=== PATIENT | female | born 2000 | race American Indian/Alaskan Native ===

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

== ENCOUNTER 2022-03-24 12:32 | Outpatient (CLI) | payer OTHER ==
[2022-03-24 16:13] LABS: Basophils % (Auto) 0.5 % (0.0-1.8); Eosinophils # (Auto) 0.1 K/mm3 (0.0-0.4); Eosinophils % (Auto) 2.2 % (0.0-4.3); Hematocrit 38.6 % (30.3-42.9); Hemoglobin 13.1 gm/dl (10.1-14.3); Lymphocytes # (Auto) 1.8 K/mm3 (1.2-5.4); Lymphocytes % (Auto) 41.4 % (13.4-35.0); Mean Corpuscular HGB Conc 34 % (30-34); Mean Corpuscular Volume 93 fl (79-97); Monocytes # (Auto) 0.3 K/mm3 (0.0-0.8); Monocytes % (Auto) 5.9 % (0.0-7.3); Platelet Count 303 K/mm3 (140-440); Red Blood Count 4.15 M/mm3 (3.65-5.03); Red Cell Distribution Width 13.4 % (13.2-15.2)
[2022-03-24 16:23] LABS: Alanine Aminotransferase 10 units/L (7-56); Albumin 4.6 g/dL (3.9-5); Blood Urea Nitrogen 14 mg/dL (7-17); Calcium 9.8 mg/dL (8.4-10.2); Chol/HDL Ratio 3.41 %; HDL Cholesterol 53 mg/dL (40-59); Hemolysis Index 8; LDL Cholesterol,Direct 125 mg/dL (50-130)
[2022-03-24 16:34] LABS: BUN/Creatinine Ratio 23
== END 2022-03-24 12:33 | disposition home or self-care (01) ==
LOC: LABHHL 12:32
PROVIDERS: ATTEND Internal Medicine
DX: Z00.00 Encounter for general adult medical examination without abnormal findings (principal); E55.9 Vitamin D deficiency, unspecified; R53.83 Other fatigue
CPT/HCPCS: 36415; 80053; 80061; 82306; 82728; 84443; 85025

== ENCOUNTER 2022-05-08 21:57 | Emergency (ER) | payer OTHER ==
[2022-05-08] MEDS ORDERED: SODIUM CHLORIDE 0.9% 1000 ML 1,000 ML ONE (22:12)
[2022-05-08] MEDS ORDERED: SODIUM CHLORIDE 0.9% 1000 ML 1,000 ML IV ONE (22:13)
--- NOTE | 2022-05-08 22:46 | XRay Report ---
CHEST 2 VIEWS INDICATION / CLINICAL INFORMATION: Altered Mental Status STUDY TIME: COMPARISON: None available. FINDINGS: SUPPORT DEVICES: None. HEART / MEDIASTINUM: No significant abnormality. LUNGS / PLEURA: No significant acute pulmonary or pleural abnormality. No pneumothorax. ADDITIONAL FINDINGS: No significant additional findings. Signer Name: Enmanuel Hopper MD Signed: 05/08/2022 10:42 PM Workstation Name: [id number]
[2022-05-08 22:48] LABS: Basophils % (Auto) 0.3 % (0.0-1.8); Eosinophils # (Auto) 0.1 K/mm3 (0.0-0.4); Hematocrit 34.5 % (30.3-42.9); Hemoglobin 11.8 gm/dl (10.1-14.3); Lymphocytes # (Auto) 2.2 K/mm3 (1.2-5.4); Lymphocytes % (Auto) 31.6 % (13.4-35.0); Mean Corpuscular HGB Conc 34 % (30-34); Mean Corpuscular Volume 93 fl (79-97); Monocytes # (Auto) 0.4 K/mm3 (0.0-0.8); Monocytes % (Auto) 5.7 % (0.0-7.3); Platelet Count 229 K/mm3 (140-440); Red Blood Count 3.72 M/mm3 (3.65-5.03); Red Cell Distribution Width 13.2 % (13.2-15.2)
[2022-05-08 23:28] LABS: Alanine Aminotransferase 7 units/L (7-56); Albumin 3.8 g/dL (3.9-5); Blood Urea Nitrogen 10 mg/dL (7-17); Calcium 8.6 mg/dL (8.4-10.2); Hemolysis Index 15
[2022-05-08 23:37] LABS: BUN/Creatinine Ratio 17
[2022-05-09 01:27] LABS: Color,Urine Straw (Yellow)
[2022-05-09 01:31] LABS: Mucus,Urine FEW /HPF
[2022-05-09 02:06] LABS: Amphetamine Screen,Urine Negative; Benzodiazepines Screen,Urine Negative; Cannabinoid Screen,Urine Negative; Cocaine Screen,Urine Negative; Methadone Screen,Urine Negative; Opiate Screen,Urine Negative
--- NOTE | 2022-05-09 02:57 | Emergency Department Report ---
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 PT TAKEN TO MAIN ED WITH REPORT GIVEN TO PRIMARY RN. BF stated that she has been suffering from depression -: hour(s) (2) Intent: unwilling to say How Overdose Was Discovered: called family/friend Context: Intentional Overdose: other (depression) Associated Symptoms: depression Treatments Prior to Arrival: none - Related Data Allergies Allergy/AdvReac Type Severity Reaction Status Date / Time No Known Allergies Allergy Verified 05/08/22 22:17 ED Review of Systems ROS: Stated complaint: OD Other details as noted in HPI Constitutional: denies: chills, fever Eyes: denies: eye pain, eye discharge, vision change ENT: denies: ear pain, throat pain Respiratory: denies: cough, shortness of breath, wheezing Cardiovascular: denies: chest pain, palpitations Endocrine: no symptoms reported Gastrointestinal: denies: abdominal pain, nausea, diarrhea Genitourinary: denies: urgency, dysuria, discharge Musculoskeletal: denies: back pain, joint swelling, arthralgia Skin: denies: rash, lesions Neurological: denies: headache, weakness, paresthesias Psychiatric: denies: anxiety, depression Hematological/Lymphatic: denies: easy bleeding, easy bruising ED Past Medical Hx - Past Medical History Previous Medical History?: Yes Hx Hypertension: No Hx CVA: No Additional medical history: depression ED Physical Exam - General Limitations: Language Barrier, Altered Mental Status General appearance: alert, in no apparent distress, other (sleepy drowsy ) - Head Head exam: Present: atraumatic, normocephalic - Eye Eye exam: Present: normal appearance - ENT ENT exam: Present: mucous membranes moist - Neck Neck exam: Present: normal inspection - Respiratory Respiratory exam: Present: normal lung sounds bilaterally. Absent: respiratory distress - Cardiovascular Cardiovascular Exam: Present: regular rate, normal rhythm. Absent: systolic murmur, diastolic murmur, rubs, gallop - GI/Abdominal GI/Abdominal exam: Present: soft, normal bowel sounds - Extremities Exam Extremities exam: Present: normal inspection - Back Exam Back exam: Present: normal inspection - Neurological Exam Neurological exam: Present: oriented X3 - Psychiatric Psychiatric exam: Present: normal affect, normal mood - Skin Skin exam: Present: warm, dry, intact, normal color. Absent: rash ED Course Vital Signs 05/08/22 05/08/22 05/08/22 22:02 22:15 22:31 Temperature Pulse Rate 74 77 77 Respiratory 21 18 14 Rate Blood Pressure 102/59 Blood Pressure [Left] O2 Sat by Pulse 96 100 Oximetry 05/08/22 05/08/22 05/08/22 22:45 23:00 23:01 Temperature 98 F Pulse Rate 90 89 Respiratory 17 14 Rate Blood Pressure 107/62 109/60 Blood Pressure [Left] O2 Sat by Pulse Oximetry 05/08/22 05/08/22 05/08/22 23:15 23:31 23:45 Temperature Pulse Rate 99 H 91 H 117 H Respiratory 13 13 15 Rate Blood Pressure 112/68 112/68 118/74 Blood Pressure [Left] O2 Sat by Pulse Oximetry 05/09/22 05/09/22 05/09/22 00:01 00:07 00:15 Temperature Pulse Rate 103 H 114 H 101 H Respiratory 14 15 14 Rate Blood Pressure 118/74 118/74 128/76 Blood Pressure [Left] O2 Sat by Pulse Oximetry 05/09/22 05/09/22 05/09/22 00:31 00:45 01:01 Temperature Pulse Rate 103 H 98 H 100 H Respiratory 13 14 15 Rate Blood Pressure 128/76 112/70 112/70 Blood Pressure [Left] O2 Sat by Pulse Oximetry 05/09/22 05/09/22 05/09/22 01:15 01:31 01:35 Temperature Pulse Rate 78 88 Respiratory 18 14 Rate Blood Pressure 106/79 106/79 Blood Pressure [Left] O2 Sat by Pulse 98 Oximetry 05/09/22 05/09/22 05/09/22 01:45 02:01 02:15 Temperature Pulse Rate 90 92 H 89 Respiratory 13 14 13 Rate Blood Pressure 103/63 103/63 105/57 Blood Pressure [Left] O2 Sat by Pulse Oximetry 09/09/22 09/09/22 09/09/22 02:31 02:45 03:01 Temperature Pulse Rate 90 94 H 91 H Respiratory 12 13 13 Rate Blood Pressure 105/57 108/59 108/59 Blood Pressure [Left] O2 Sat by Pulse Oximetry 05/09/22 05/09/22 05/09/22 03:15 03:31 08:53 Temperature 97.9 F Pulse Rate 86 115 H 57 L Respiratory 14 18 18 Rate Blood Pressure 102/67 102/67 Blood Pressure 127/77 [Left] O2 Sat by Pulse 97 Oximetry 05/09/22 15:00 Temperature Pulse Rate 60 Respiratory 18 Rate Blood Pressure Blood Pressure 130/88 [Left] O2 Sat by Pulse 97 Oximetry ED Medical Decision Making - Lab Data Result diagrams: 05/08/22 22:32 05/08/22 22:32 - EKG Data -: EKG Interpreted by Me EKG shows normal: sinus rhythm Rate: tachycardia - EKG Data Interpretation: no acute changes - Radiology Data Radiology results: report reviewed, image reviewed - Medical Decision Making poison control contacted , fludis given , observed cleared by ED , [address] , will geetha to psych for obs and psych assessment Critical care attestation.: If time is entered above; I have spent that time in minutes in the direct care of this critically ill patient, excluding procedure time. ED Disposition Clinical Impression: Depression, Overdose Disposition: 30 STILL A PATIENT Is pt being admited?: No Does the pt Need Aspirin: No Condition: Stable Additional Instructions: OUTPATIENT MENTAL HEALTH RESOURCES [facility], [facility] Claudine Gutierrez MD: [address] [facility] [address] [place] [address] [place] [address] [facility]: [facility] [address] [place] [address] [place] [address] [phone] [facility]: [facility]: [address] [facility] [address] [place] [address] [place] [address] [facility] [id number] [facility]: Leroy Lam MD: [id number] [facility] [address] [facility] [address] [facility]: [address] [place], [place] [address]ate [place] [address] [phone] [place] CRISIS AND ACCESS LINE: Referrals: ARIE SCHWARTZ MD [Primary Care Provider] - 3-5 Days
--- NOTE | 2022-05-09 06:29 | Event Note ---
Date: 05/09/22 Patient is a 22-year-old female here on 1013 hold for intentional overdose. This morning she appears awake and alert. Denies any complaints at this time. Constitutional: No fever, chills, weight loss Eyes: No changes in vision, photophobia, ocular pain Cardiovascular: No chest pain, palpitations, edema Respiratory: No dyspnea, cough Gastrointestinal: No nausea, vomiting, diarrhea, abdominal pain Genitourinary: No dysuria, hematuria, polyuria Musculoskeletal: No arthralgia, myalgia Integumentary: No rashes, lesions or change in color Neurological: No focal weakness, headache or numbness Psychiatric: As per HPI General: Alert and oriented x3, no acute distress Head: Normocephalic, atraumatic Eyes: PERRLA, EOMI Cardiac: Regular rate, regular rhythm, no murmurs, gallops or rubs Respiratory: Clear to auscultation bilaterally, no wheezes, rales, normal work of breathing Abdomen: Soft, nontender, nondistended, normal bowel sounds Skin: Warm, dry, intact, appropriate for ethnicity, no rashes or lesions Neurological: Cranial nerves II through XII grossly intact Psych: Normal mood and affect
--- NOTE | 2022-05-09 10:19 | Consultation ---
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 PT TAKEN TO MAIN ED WITH REPORT GIVEN TO PRIMARY RN. BF stated that she has been suffering from depression The patient was today. She makes poor eye contact and endorses feeling depressed. She says she has been depressed and "the medication has not been good for me." The patient denies feeling suicidal at the moment, but says she's "just been depressed." She denies having any suicidal thoughts. She denies hallucinations or any illicit drug use. The patient says she lives with her sister and her mom. REVIEW OF SYSTEMS Constitutional: Negative for weight loss ENT: Negative for stridor Respiratory: Negative for cough or hemoptysis All other systems reviewed and are negative MENTAL STATUS EXAMINATION General Appearance and Behavior: Age appropriate, wearing appropriate clothes, cooperative, polite with questioning, fair eye contact Cooperation: cooperative Psychomotor Behavior: Psychomotor normal Mood: depressed Affect and affective range: congruent with stated affect Thought Process: Goal directed Thought Content: Reality oriented Speech: Normal volume, Regular rate and rhythm Suicidal Ideation: Denies Homicidal Ideation: Denies Hallucination: Denies Delusions: None elicited Impulse Control: poor Insight and Judgment: Limited Memory: Intact Attention:attentive Orientation: Alert and oriented Assessment: Major Depressive Disorder Intentional Overdose Treatment Plan 1013 Zoloft 25mg po daily Trazodone 50mg po qhs PSYCHOTHERAPY: Supportive psychotherapy provided MEDICAL: Per primary team DELIRIUM PRECAUTIONS: Please re-orient patient frequently, keep lights on during the day, and minimize benzodiazepines and opiates as these medications could worsen patient's confusion. 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 FOLLOW-UP: Will follow Thanks Case staffed with Dr. Barber Medications and Allergies Allergies Allergy/AdvReac Type Severity Reaction Status Date / Time No Known Allergies Allergy Verified 05/08/22 22:17 Mental Status Exam - Vital signs Last Vital Signs Temp 97.9 F 05/09/22 08:53 Pulse 57 L 05/09/22 08:53 Resp 18 05/09/22 08:53 BP 127/77 05/09/22 08:53 Pulse Ox 97 05/09/22 08:53 Results Result Diagrams: 05/08/22 22:32 05/08/22 22:32 Abnormal lab results 05/08/22 05/08/22 05/08/22 Range/Units 22:11 22:32 22:32 Chloride 108.2 H (98-107) mmol/L Glucose 115 H (65-100) mg/dL POC Glucose 106 H (70-105) mg/dL Lactic Acid (0.7-2.0) mmol/L Ammonia 12.0 L (25-60) umol/L Total Protein 6.1 L (6.3-8.2) g/dL Albumin 3.8 L (3.9-5) g/dL Salicylates (2.8-20.0) mg/dL Acetaminophen (10.0-30.0) ug/mL 05/08/22 05/08/22 05/09/22 Range/Units 22:32 22:32 00:07 Chloride (98-107) mmol/L Glucose (65-100) mg/dL POC Glucose (70-105) mg/dL Lactic Acid 0.60 L (0.7-2.0) mmol/L Ammonia (25-60) umol/L Total Protein (6.3-8.2) g/dL Albumin (3.9-5) g/dL Salicylates < 0.3 L (2.8-20.0) mg/dL Acetaminophen 5.0 L (10.0-30.0) ug/mL All other labs normal.
--- NOTE | 2022-05-09 10:56 | Electrocardiograph Report ---
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
--- NOTE | 2022-05-09 10:58 | Electrocardiograph Report ---
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
[2022-05-09] MEDS: SERTRALINE 25 MG TAB PO SCH (16:13)
[2022-05-09] MEDS ORDERED: traZODone 50 MG TAB PO SCH (22:00)
--- NOTE | 2022-05-10 06:48 | Event Note ---
Date: 05/10/22 Patient had no acute events overnight. This morning she is well and has no complaints. She remains on 1013 psychiatric hold.
[2022-05-10] MEDS: SERTRALINE 25 MG TAB PO SCH (09:34)
--- NOTE | 2022-05-10 09:43 | Progress Note ---
Subjective - Reason for Consult Consult date: 05/10/22 Reason for consult: unintentional overdose - Chief Complaint Chief complaint: The patient was seen today. She says it was a misunderstanding when she came in. She says "I don't want to . I want to work on going to school." She says "some times depression, but not wanting to ." The patient is Moh[place] speaking. I later utilized an american sign language interpreter. The patient says she took a couple of tablets of seroquel to sleep. She says she never had any intentions of hurting herself or not waking up. The patient says she's never thought about or attempted suicide in the past. She says she was given the Seroquel when she was in the [place] for sleep. She denies any hallucinations. The patient gives me permission to speak with her sister. The sister has someone else on the line who is translating for her. She agrees that it was a big misunderstanding with her sister. She says Sarah has never tried to harm herself. She says the patient was only trying to get rest. Will no longer recommend acute psychiatric inpatient treatment. REVIEW OF SYSTEMS Constitutional: Negative for weight loss ENT: Negative for stridor Respiratory: Negative for cough or hemoptysis All other systems reviewed and are negative MENTAL STATUS EXAMINATION General Appearance and Behavior: Age appropriate, wearing appropriate clothes, cooperative, polite with questioning, fair eye contact Cooperation: cooperative Psychomotor Behavior: Psychomotor normal Mood: good Affect and affective range: congruent with stated affect Thought Process: Goal directed Thought Content: Reality oriented Speech: Normal volume, Regular rate and rhythm Suicidal Ideation: Denies Homicidal Ideation: Denies Hallucination: Denies Delusions: None elicited Impulse Control: Limited Insight and Judgment: Limited Memory: Intact Attention:attentive Orientation: Alert and oriented Assessment: Major Depressive Disorder Unintentional Overdose Treatment Plan d/c 1013 Zoloft 25mg po daily Trazodone 50mg po qhs PSYCHOTHERAPY: Supportive psychotherapy provided MEDICAL: Per primary team DELIRIUM PRECAUTIONS: Please re-orient patient frequently, keep lights on during the day, and minimize benzodiazepines and opiates as these medications could worsen patient's confusion. 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 The patient and family understand that if SI/HI arise they are to seek immediate assistance FOLLOW-UP: will sign off. thanks Case staffed with Dr. Barber Mental Status Exam - Vital signs Last Vital Signs Temp 98.4 F 05/09/22 20:20 Pulse 92 H 05/09/22 20:20 Resp 18 05/09/22 20:20 BP 106/69 05/09/22 20:20 Pulse Ox 100 05/09/22 20:20
[2022-05-10 10:02] VITALS: BP 114/71
== END 2022-05-10 12:04 | disposition home or self-care (01) ==
LOC: ED 21:57
DX: F32.A Depression, unspecified (principal); T65.91XA Toxic effect of unspecified substance, accidental (unintentional), initial encounter; Y92.89 Other specified places as the place of occurrence of the external cause
CPT/HCPCS: 36415; 71045; 80048; 80053; 82140; 82550; 82962; 84484; 85025; 85610; 93005; 96360; 99285; J7030; 80320; G0480